=== PATIENT | male | born 1955 | race Caucasian/White ===

== ENCOUNTER 2019-11-04 08:36 | Emergency (ER) | payer OTHER ==
[2019-11-04 08:45] VITALS: BP 126/82; PULSE 73; TEMP 97.9; BMI 19.2
--- OUTSIDE RECORDS SUMMARY | 2019-11-04 08:57 | XMS ---
:1955 Author Organization [facility] Support Name Relationship Address Phone UE Unavailable Unavailable Unavailable ELMO BRIZUELA BROTHER [address] [place] [address] ELMO BRIZUELA Unavailable [address] [place] [address] Re-disclosure Warning The records that you are about to access may contain information from federally- assisted alcohol or drug abuse programs. If such information is present, then the following federally mandated warning applies: This information has been disclosed to you from records protected by federal confidentiality rules (42 CFR part 2). The federal rules prohibit you from making any further disclosure of this information unless further disclosure is expressly permitted by the written consent of the person to whom it pertains or as otherwise permitted by 42 CFR part 2. A general authorization for the release of medical or other information is NOT sufficient for this purpose. The Federal rules restrict any use of the information to criminally investigate or prosecute any alcohol or drug abuse patient.The records that you are about to access may contain highly sensitive health information, the redisclosure of which is protected by Article 27-F of the [facility] Public Health law. If you continue you may haveaccess to information: Regarding HIV / AIDS; Provided by facilities licensed or operated by the [facility] Office of Mental Health; or Provided by the [facility] Office for People With Developmental Disabilities. If such information is present, then the following [facility] mandated warning applies: This information has been disclosed to you from confidential records which are protected by state law. State law prohibits you from making any further disclosure of this information without the specific written consent of the person to whom it pertains, or as otherwise permitted by law. Any unauthorized further disclosure in violation of state law may result in a fine or fci sentence or both. A general authorization for the release of medical or other information is NOT sufficient authorization for further disclosure. Allergies and Adverse Reactions Type Description Substance Reaction Status Data Source(s ) No Known No Known Allergies No Known eCW3 ( [facility]) No Known No Known Allergies No Known eCW3 ( [facility]) No Known No Known Allergies No Known eCW3 ( [facility] Allergies [facility]erg[facility]) No Known No Known Allergies No Known eCW3 ( [facility] Allergies Allergies [facility]) No Known No Known Allergies No Known eCW3 ( [facility] Allergies [facility]ergies [facility]) No Known No Known Allergies No Known eCW3 ( [facility] Allergies Allergies [facility]) No Known No Known Allergies No Known eCW3 ( [facility] Allergies Allergies [facility]) No Known No Known Allergies No Known eCW3 ( [facility] Allergies Allergies [facility]) No Known No Known Allergies No Known eCW3 ( [facility] Allergies Allergies [facility]) No Known No Known Allergies No Known eCW3 ( [facility] Allergies Allergies [facility]) No Known No Known Allergies No known eCW3 ( [facility] Allergies allergies [facility] ([facility] [place] [facility]) Encounters Encounter Providers Location Date Indications Data Source(s ) ([place]) [facility] 11/12/2018 eCW3 ([facility] 12:00:00 AM [facility] EDT - Care) 11/12/2018 12:00:00 AM EDT Outpatient [facility] 10/12/2018 eCW3 ([facility] 12:[facility]:00 [facility] 10/12/2018 12:00:00 AM EDT Outpatient [facility] 10/02/2018 eCW3 ([facility] 12:00:00 [facility] 10/02/2018 12:00:00 AM EDT Outpatient [facility] 09/13/2018 eCW3 ([facility] 12:00:00 [facility] 09/13/2018 12:00:00 AM EDT ([place]) [facility] 08/13/2018 eCW3 ([facility] 12:00:00 AM [facility]T - Care) 08/13/2018 12:00:00 AM EDT Outpatient [facility] 07/13/2018 eCW3 ([facility] 12:00:00 [facility]) 07/13/2018 12:00:00 AM EDT Outpatient [facility] 07/03/2018 eCW3 ([facility] 12:00:00 [facility]) 07/03/2018 12:00:00 AM EDT Outpatient [facility] 07/02/2018 eCW3 ([facility] 12:00:00 [facility]) 07/02/2018 12:00:00 AM EDT (NBillable) [facility] 06/14/2018 eCW3 ([facility] 12:00:00 AM [facility]T - Care) 06/14/2018 12:00:00 AM EDT Outpatient [facility] 05/14/2018 eCW3 ([facility] 12:00:00 AM [facility]) 05/14/2018 12:00:00 AM EDT (NBillable) [facility] 04/13/2018 eCW3 ([facility] 12:00:00 AM [facility] EST - Care) 04/13/2018 12:00:00 AM EST Immunizations Vaccine Date Status Description Data Source(s) Tdap 12/06/2018 10:42:00 completed eCW3 ([facility]) New in 2011. IIV4 12/06/2018 10:42:00 completed eC W3 ([facility]) Tdap 12/06/2018 10:42:00 completed eCW3 ([facility]) New in 2011. IIV4 12/06/2018 10:42:00 completed eC W3 ([facility]) New in 2011. IIV4 11/13/2017 11:10:00 completed eC W3 ([facility]) New in 2011. IIV4 11/13/2017 11:10:00 completed eC W3 ([facility]) New in 2011. IIV4 01/16/2017 11:21:00 completed eC W3 ([facility] EST [facility]) New in 2011. IIV4 01/16/2017 11:21:00 completed eC W3 ([facility]) Medications Medication Brand Start Product Dose Route Administrative Pharmacy [facility] Indications Reaction Description Data Name Date Form Instructions Instructions Source(s) Cyanocobala UNK .0 active Cyanocoba hodge eCW3 min 1000 2020 {tabl in 1000 MCG ([facility] MCG 12:00: et} [facility] 00 [facility] EDT Care) Cyanocobala UNK 1.0 active Cyanocoba hodge eCW3 min 1000 2020 {tabl in 1000 MCG ([facility] MCG 12:00: et} [facility] 00 AM Health EDT Care) Cyanocobala UNK .0 active Cyanocoba hodge eCW3 min 1000 2020 {tabl in 1000 MCG ([facility] MCG 12:00: et} [facility] 00 AM Health EDT Care) Cyanocobala UNK .0 active Cyanocoba hodge eCW3 min 1000 2019 {tabl in 1000 MCG ([facility] MCG 12:00: et} [facility] 00 AM Health EDT Care) Cyanocobala UNK 1.0 active Cyanocoba hodge eCW3 min 1000 2020 {tabl in 1000 MCG ([facility] MCG 12:00: et} [facility] 00 AM Health EDT Care) Cyanocobala UNK .0 active Cyanocoba hodge eCW3 min 1000 2019 {tabl in 1000 MCG ([facility] MCG 12:00: et} [facility] 00 AM Health EDT Care) Famotidine Famoti .0 active Famotidi ne eCW3 40 MG Oral dine 2020 {tabl 40 MG ([facility] Tablet 40 MG 12:00: et_at [facility] 00 [facility]} Care) Famotidine Famoti .0 active Famotidi ne eCW3 40 MG Oral dine 2020 {tabl 40 MG ([facility] Tablet 40 MG 12:00: et_at [facility] 00 [facility]} Care) Famotidine Famoti .0 active Famotidi ne eCW3 40 MG Oral dine 2020 {tabl 40 MG ([facility] Tablet 40 MG 12:00: et_at [facility] 00 AM _[facility] EST [facility]} Care) Famotidine Famoti .0 active Famotidi ne eCW3 40 MG Oral dine 2020 {tabl 40 MG ([facility] Tablet 40 MG 12:00: et_at [facility] 00 AM _[facility] EST [place]} Care) Famotidine Famoti .0 active Famotidi ne eCW3 40 MG Oral dine 2020 {tabl 40 MG ([facility] Tablet 40 MG 12:00: et_at [facility] 00 AM _[facility] EST [facility]} Care) Famotidine Famoti .0 active Famotidi ne eCW3 40 MG Oral dine 2020 {tabl 40 MG ([facility] Tablet 40 MG 12:00: et_at [facility] 00 [facility] Famotidine Famoti .0 active Famotidi ne eCW3 40 MG Oral dine 2020 {tabl 40 MG ([facility] Tablet 40 MG 12:00: et_at [facility] 00 AM [facility] Care) Famotidine Famoti .0 active Famotidi ne eCW3 40 MG Oral dine 2020 {tabl 40 MG ([facility] Tablet 40 MG 12:00: et_at [facility] 00 AM [facility] Care) Famotidine Famoti .0 active Famotidi ne eCW3 20 MG Oral dine 2020 {tabl 20 MG ([facility] Tablet 20 MG 12:00: et} [facility] 00 AM [facility]) Naproxen Naprox 03/08/ active Naproxen 3 75 eCW3 375 MG Oral en 375 2020 MG ([facility] Tablet MG 12:00: [facility] 00 AM [facility]) Levothyroxi Levoth 10/11/ active Levothy roxin eCW3 ne Sodium yroxin 2016 e Sodium 25 ( [facility] 0.025 MG e 12:00: MCG [facility] Oral Tablet Sodium 00 AM Healt h Levothyroxi 25 MCG [facility] Care) ne Sodium 25 MCG Folic Acid Folic .0 active Folic Aci d 1 eCW3 1 MG Oral Acid 2016 {tabl MG ([facility] Tablet MG 12:00: et} [facility] 00 AM [facility] EDT Care) Atenolol 25 Atenol 1.0 active Atenolo l 25 eCW3 MG Oral ol 2015 {tabl MG ([facility] Tablet MG 12:00: et} [facility] 00 AM [facility] EDT Care) Amlodipine Amlodi .0 active Amlodipi ne eCW3 5 MG Oral pine 2014 {tabl Besylate 5 ([facility] Tablet Besyla 12:00: et} MG [facility] Amlodipine te 5 00 AM Health Besylate 5 MG EDT [facility]) MG levocetiriz Levoce active Levocetir izi eCW3 ine tirizi ne ([facility] dihydrochlo ne Dihydrochlor [facility] ride 5 MG Dihydr denny 5 MG Heal th Oral Tablet [facility]) Levocetiriz denny 5 ine MG Dihydrochlo ride 5 MG Metoclopram Metocl active Metoclopr ami eCW3 denny 5 MG oprami de HCl 5 MG ([facility] Oral Tablet de HCl [facility] Metoclopram 5 MG Health denny HCl 5 Care) MG pantoprazol Pantop active Pantopraz ole eCW3 e 40 MG razole Sodium 40 MG ([facility] Delayed Sodium [facility] Release 40 MG Health Oral Tablet Care) Pantoprazol e Sodium 40 MG Atenolol 25 Atenol 1.0 active Atenolol 25 eCW3 MG Oral ol 25 {tabl MG ([facility] Tablet MG et} [facility]) Folic Acid Folic 1.0 active Folic Acid 1 eCW3 1 MG Oral Acid 1 {tabl MG ([facility] Tablet MG et} [facility]) Levothyroxi Levoth active Levothyro patience eCW3 ne Sodium yroxin e Sodium 25 ( [facility] 0.025 MG e MCG [facility] Oral Tablet Sodium Health Levothyroxi 25 MCG Care) ne Sodium 25 MCG pantoprazol Pantop active Pantopraz ole eCW3 e 40 MG razole Sodium 40 MG ([facility] Delayed Sodium [facility] Release 40 MG Health Oral Tablet Care) Pantoprazol e Sodium 40 MG Folic Acid Folic 1.0 active Folic Acid 1 eCW3 1 MG Oral Acid 1 {tabl MG ([facility] Tablet MG et} [facility]) Amlodipine Amlodi 1.0 active Amlodipine eCW3 5 MG Oral pine {tabl Besylate 5 (Hu dson Tablet Besyla et} MG [facility] Amlodipine te 5 Health Besylate 5 MG Care) MG Folic Acid Folic 1.0 active Folic Acid 1 eCW3 1 MG Oral Acid 1 {tabl MG ([facility] Tablet MG et} [facility]) Loratadine Clarit 1.0 suspend Claritin 10 eCW3 10 MG Oral in 10 {tabl ed mg ([facility] Tablet mg et} [facility] [Claritin] Health Claritin 10 Care) mg Metoclopram Metocl active Metoclopr ami eCW3 denny 5 MG oprami de HCl 5 MG ([facility] Oral Tablet de HCl [facility] Metoclopram 5 MG Health denny HCl 5 Care) MG Meclizine Mecliz 1.0 suspend Meclizine eCW3 Hydrochlori ine {tabl ed HCl 25 MG ([facility] de 25 MG HCl 25 et_as [facility] Oral Tablet MG _need Health Meclizine ed} Care) HCl 25 MG Amlodipine Amlodi 1.0 active Amlodipine eCW3 5 MG Oral pine {tabl Besylate 5 (Hu dson Tablet Besyla et} MG [facility] Amlodipine te 5 Health Besylate 5 MG Care) MG Levothyroxi Levoth active Levothyro patience eCW3 ne Sodium yroxin e Sodium 25 ( [facility] 0.025 MG e MCG [facility] Oral Tablet Sodium Health Levothyroxi 25 MCG Care) ne Sodium 25 MCG Claritin 10 Clarit 1.0 suspend Claritin 10 eCW3 mg in 10 {tabl ed mg ([facility] mg et} [facility]) Meclizine Mecliz 1.0 suspend Meclizine eCW3 Hydrochlori ine {tabl ed HCl 25 MG ([facility] de 25 MG HCl 25 et_as [facility] Oral Tablet MG _need Health Meclizine ed} Care) HCl 25 MG Vitamin B Cyanoc 1.0 active Cyanocobala m eCW3 12 1 MG/ML obalam {ml} in 1000 ([facility] son Injectable in MCG/ML [facility] Solution 1000 Health Cyanocobala MCG/ML Care) min 1000 MCG/ML Loratadine Clarit 1.0 suspend Claritin 10 eCW3 10 MG Oral in 10 {tabl ed mg ([facility] Tablet mg et} [facility] [Claritin] Health Claritin 10 Care) mg Atenolol 25 Atenol 1.0 active Atenolol 25 eCW3 MG Oral ol 25 {tabl MG ([facility] Tablet MG et} [facility]) levocetiriz Levoce active Levocetir izi eCW3 ine tirizi ne ([facility] dihydrochlo ne Dihydrochlor [facility] ride 5 MG Dihydr denny 5 MG Heal th Oral Tablet [facility]) Levocetiriz denny 5 ine MG Dihydrochlo ride 5 MG pantoprazol Pantop active Pantopraz ole eCW3 e 40 MG razole Sodium 40 MG ([facility] Delayed Sodium [facility] Release 40 MG Health Oral Tablet Care) Pantoprazol e Sodium 40 MG Atenolol 25 Atenol 1.0 active Atenolol 25 eCW3 MG Oral ol 25 {tabl MG ([facility] Tablet MG et} [facility]) Vitamin B Cyanoc 1.0 active Cyanocobala m eCW3 12 1 MG/ML obalam {ml} in 1000 ([facility] son Injectable in MCG/ML [facility] Solution 1000 Health Cyanocobala MCG/ML Care) min 1000 MCG/ML Vitamin B Cyanoc 1.0 active Cyanocobala m eCW3 12 1 MG/ML obalam {ml} in 1000 ([facility] son Injectable in MCG/ML [facility] Solution 1000 Health Cyanocobala MCG/ML Care) min 1000 MCG/ML Vitamin B Cyanoc 1.0 active Cyanocobala m eCW3 12 1 MG/ML obalam {ml} in 1000 ([facility] son Injectable in MCG/ML [facility] Solution 1000 Health Cyanocobala MCG/ML Care) min 1000 MCG/ML Amlodipine Amlodi 1.0 active Amlodipine eCW3 5 MG Oral pine {tabl Besylate 5 (Hu dson Tablet Besyla et} MG [facility] Amlodipine te 5 Health Besylate 5 MG Care) MG Atenolol 25 Atenol 1.0 active Atenolol 25 eCW3 MG Oral ol 25 {tabl MG ([facility] Tablet MG et} [facility]) Metoclopram Metocl active Metoclopr ami eCW3 denny 5 MG oprami de HCl 5 MG ([facility] Oral Tablet de HCl [facility] Metoclopram 5 MG Health denny HCl 5 Care) MG levocetiriz Levoce active Levocetir izi eCW3 ine tirizi ne ([facility] dihydrochlo ne Dihydrochlor [facility] ride 5 MG Dihydr denny 5 MG Heal th Oral Tablet [facility]) Levocetiriz denny 5 ine MG Dihydrochlo ride 5 MG Loratadine Clarit 1.0 suspend Claritin 10 eCW3 10 MG Oral in 10 {tabl ed mg ([facility] Tablet mg et} [facility] [Claritin] Health Claritin 10 Care) mg Amlodipine Amlodi 1.0 active Amlodipine eCW3 5 MG Oral pine {tabl Besylate 5 (Hu dson Tablet Besyla et} MG [facility] Amlodipine te 5 Health Besylate 5 MG Care) MG Vitamin B Cyanoc 1.0 active Cyanocobala m eCW3 12 1 MG/ML obalam {ml} in 1000 ([facility] son Injectable in MCG/ML [facility] Solution 1000 Health Cyanocobala MCG/ML Care) min 1000 MCG/ML Atenolol 25 Atenol 1.0 active Atenolol 25 eCW3 MG Oral ol 25 {tabl MG ([facility] Tablet MG et} [facility]) levocetiriz Levoce active Levocetir izi eCW3 ine tirizi ne ([facility] dihydrochlo ne Dihydrochlor [facility] ride 5 MG Dihydr denny 5 MG Heal th Oral Tablet [facility]) Levocetiriz denny 5 ine MG Dihydrochlo ride 5 MG Metoclopram Metocl active Metoclopr ami eCW3 denny 5 MG oprami de HCl 5 MG ([facility] Oral Tablet de HCl [facility] Metoclopram 5 MG Health denny HCl 5 Care) MG Meclizine Mecliz 1.0 suspend Meclizine eCW3 Hydrochlori ine {tabl ed HCl 25 MG ([facility] de 25 MG HCl 25 et_as [facility] Oral Tablet MG _need Health Meclizine ed} Care) HCl 25 MG Levothyroxi Levoth active Levothyro patience eCW3 ne Sodium yroxin e Sodium 25 ( [facility] 0.025 MG e MCG [facility] Oral Tablet Sodium Health Levothyroxi 25 MCG Care) ne Sodium 25 MCG Amlodipine Amlodi 1.0 active Amlodipine eCW3 5 MG Oral pine {tabl Besylate 5 (Hu dson Tablet Besyla et} MG [facility] Amlodipine te 5 Health Besylate 5 MG Care) MG Metoclopram Metocl active Metoclopr ami eCW3 denny 5 MG oprami de HCl 5 MG ([facility] Oral Tablet de HCl [facility] Metoclopram 5 MG Health denny HCl 5 Care) MG pantoprazol Pantop active Pantopraz ole eCW3 e 40 MG razole Sodium 40 MG ([facility] Delayed Sodium [facility] Release 40 MG Health Oral Tablet Care) Pantoprazol e Sodium 40 MG Folic Acid Folic 1.0 active Folic Acid 1 eCW3 1 MG Oral Acid 1 {tabl MG ([facility] Tablet MG et} [facility]) Amlodipine Amlodi 1.0 active Amlodipine eCW3 5 MG Oral pine {tabl Besylate 5 (Hu dson Tablet Besyla et} MG [facility] Amlodipine te 5 Health Besylate 5 MG Care) MG levocetiriz Levoce active Levocetir izi eCW3 ine tirizi ne ([facility] dihydrochlo ne Dihydrochlor [facility] ride 5 MG Dihydr denny 5 [facility] Levocetiriz denny 5 ine MG Dihydrochlo ride 5 MG Folic Acid Folic 1.0 active Folic Acid 1 eCW3 1 MG Oral Acid 1 {tabl MG ([facility] Tablet MG et} [facility] Care) Meclizine Mecliz 1.0 suspend Meclizine eCW3 Hydrochlori ine {tabl ed HCl 25 MG (H udson de 25 MG HCl 25 et_as [facility] Oral Tablet MG _need Health Meclizine ed} Care) HCl 25 MG Levothyroxi Levoth active Levothyro patience eCW3 ne Sodium yroxin e Sodium 25 ( [facility] 0.025 MG e MCG [facility] Oral Tablet Sodium Health Levothyroxi 25 MCG Care) ne Sodium 25 MCG Meclizine Mecliz 1.0 suspend Meclizine eCW3 Hydrochlori ine {tabl ed HCl 25 MG (H udson de 25 MG HCl 25 et_as [facility] Oral Tablet MG _need Health Meclizine ed} Care) HCl 25 MG Meclizine Mecliz 1.0 suspend Meclizine eCW3 Hydrochlori ine {tabl ed HCl 25 MG (H udson de 25 MG HCl 25 et_as [facility] Oral Tablet MG _need Health Meclizine ed} Care) HCl 25 MG levocetiriz Levoce active Levocetir izi eCW3 ine tirizi ne ([facility] dihydrochlo ne Dihydrochlor [facility] ride 5 MG Dihydr denny 5 MG [facility] Levocetiriz denny 5 ine MG Dihydrochlo ride 5 MG pantoprazol Pantop active Pantopraz ole eCW3 e 40 MG razole Sodium 40 MG (H udson Delayed Sodium [facility] Release 40 MG Health Oral Tablet Care) Pantoprazol e Sodium 40 MG pantoprazol Pantop active Pantopraz ole eCW3 e 40 MG razole Sodium 40 MG (H udson Delayed Sodium [facility] Release 40 MG Health Oral Tablet Care) Pantoprazol e Sodium 40 MG Atenolol 25 Atenol 1.0 active Atenolol 25 eCW3 MG Oral ol 25 {tabl MG ([facility] Tablet MG et} [facility]) Vitamin B Cyanoc 1.0 active Cyanocobala m eCW3 12 1 MG/ML obalam {ml} in 1000 ([facility] son Injectable in MCG/ML [facility] Solution 1000 Health Cyanocobala MCG/ML Care) min 1000 MCG/ML Folic Acid Folic 1.0 active Folic Acid 1 eCW3 1 MG Oral Acid 1 {tabl MG ([facility] Tablet MG et} [facility]) Folic Acid Folic 1.0 active Folic Acid 1 eCW3 1 MG Oral Acid 1 {tabl MG ([facility] Tablet MG et} [facility] Care) Meclizine Mecliz 1.0 suspend Meclizine eCW3 Hydrochlori ine {tabl ed HCl 25 MG (H udson de 25 MG HCl 25 et_as [facility] Oral Tablet MG _need Health Meclizine ed} Care) HCl 25 MG Levothyroxi Levoth active Levothyro patience eCW3 ne Sodium yroxin e Sodium 25 ( [facility] 0.025 MG e MCG [facility] Oral Tablet Sodium Health Levothyroxi 25 MCG Care) ne Sodium 25 MCG Atenolol 25 Atenol 1.0 active Atenolol 25 eCW3 MG Oral ol 25 {tabl MG ([facility] Tablet MG et} [facility] Care) Vitamin B Cyanoc 1.0 active Cyanocobala m eCW3 12 1 MG/ML obalam {ml} in 1000 ([facility] son Injectable in MCG/ML [facility] Solution 1000 Health Cyanocobala MCG/ML Care) min 1000 MCG/ML Vitamin B Cyanoc 1.0 active Cyanocobala m eCW3 12 1 MG/ML obalam {ml} in 1000 ([facility] son Injectable in MCG/ML [facility] Solution 1000 Health Cyanocobala MCG/ML Care) min 1000 MCG/ML levocetiriz Levoce active Levocetir izi eCW3 ine tirizi ne ([facility] dihydrochlo ne Dihydrochlor [facility] ride 5 MG Dihydr denny 5 MG [facility] Levocetiriz denny 5 ine MG Dihydrochlo ride 5 MG Amlodipine Amlodi 1.0 active Amlodipine eCW3 5 MG Oral pine {tabl Besylate 5 (Hu dson Tablet Besyla et} MG [facility] Amlodipine te 5 Health Besylate 5 MG Care) MG Atenolol 25 Atenol 1.0 active Atenolol 25 eCW3 MG Oral ol 25 {tabl MG ([facility] Tablet MG et} [facility]) Loratadine Clarit 1.0 suspend Claritin 10 eCW3 10 MG Oral in 10 {tabl ed mg ([facility] Tablet mg et} [facility] [[facility]] [facility] [place] [facility]) mg Amlodipine Amlodi 1.0 active Amlodipine eCW3 5 MG Oral pine {tabl Besylate 5 (Hu dson Tablet Besyla et} MG [facility] Amlodipine te 5 Health Besylate 5 MG Care) MG Folic Acid Folic 1.0 active Folic Acid 1 eCW3 1 MG Oral Acid 1 {tabl MG ([facility] Tablet MG et} [facility]) Folic Acid Folic 1.0 active Folic Acid 1 eCW3 1 MG Oral Acid 1 {tabl MG ([facility] Tablet MG et} [facility] Care) Metoclopram Metocl active Metoclopr ami eCW3 denny 5 MG oprami de HCl 5 MG (H udson Oral Tablet de HCl [facility] Metoclopram 5 MG Health denny HCl 5 Care) MG Loratadine Clarit 1.0 suspend Claritin 10 eCW3 10 MG Oral in 10 {tabl ed mg ([facility] Tablet mg et} [facility] [[facility]] [facility] 10 [place] [facility]) mg Vitamin B Cyanoc 1.0 active Cyanocobala m eCW3 12 1 MG/ML obalam {ml} in 1000 ([facility] son Injectable in MCG/ML [facility] Solution 1000 Health Cyanocobala MCG/ML Care) min 1000 MCG/ML Loratadine Clarit 1.0 suspend Claritin 10 eCW3 10 MG Oral in 10 {tabl ed mg ([facility] Tablet mg et} [facility] [[facility]] [facility] 10 [place] [facility]) mg Loratadine Clarit 1.0 suspend Claritin 10 eCW3 10 MG Oral in 10 {tabl ed mg ([facility] Tablet mg et} [facility] [[facility]] [address]) mg Levothyroxi Levoth active Levothyro patience eCW3 ne Sodium yroxin e Sodium 25 ( [facility] 0.025 MG e MCG [facility] Oral Tablet Sodium Health Levothyroxi 25 MCG Care) ne Sodium 25 MCG pantoprazol Pantop active Pantopraz ole eCW3 e 40 MG razole Sodium 40 MG (H udson Delayed Sodium [facility] Release 40 MG Health Oral Tablet Care) Pantoprazol e Sodium 40 MG Amlodipine Amlodi 1.0 active Amlodipine eCW3 5 MG Oral pine {tabl Besylate 5 (Hu dson Tablet Besyla et} MG [facility] Amlodipine te 5 Health Besylate 5 MG Care) MG Levothyroxi Levoth active Levothyro patience eCW3 ne Sodium yroxin e Sodium 25 ( [facility] 0.025 MG e MCG [facility] Oral Tablet Sodium Health Levothyroxi 25 MCG Care) ne Sodium 25 MCG Loratadine Clarit 1.0 suspend Claritin 10 eCW3 10 MG Oral in 10 {tabl ed mg ([facility] Tablet mg et} [facility] [[facility]] [address]) mg levocetiriz Levoce active Levocetir izi eCW3 ine tirizi ne (N[facility]ols dihydrochlo ne Dihydrochlor [facility] ride 5 MG Dihydr denny 5 MG Heal th Oral Tablet [facility]) Levocetiriz denny 5 ine MG Dihydrochlo ride 5 MG Loratadine Clarit 1.0 suspend Claritin 10 eCW3 10 MG Oral in 10 {tabl ed mg ([facility] Tablet mg et} [facility] [[facility]] [address]) mg Meclizine Mecliz 1.0 suspend Meclizine eCW3 Hydrochlori ine {tabl ed HCl 25 MG (H udson de 25 MG HCl 25 et_as [facility] Oral Tablet MG _need Health Meclizine ed} Care) HCl 25 MG Meclizine Mecliz 1.0 suspend Meclizine eCW3 Hydrochlori ine {tabl ed HCl 25 MG (H udson de 25 MG HCl 25 et_as [facility] Oral Tablet MG _need Health Meclizine ed} Care) HCl 25 MG Levothyroxi Levoth active Levothyro patience eCW3 ne Sodium yroxin e Sodium 25 ( [facility] 0.025 MG e MCG [facility] Oral Tablet Sodium Health Levothyroxi 25 MCG Care) ne Sodium 25 MCG levocetiriz Levoce active Levocetir izi eCW3 ine tirizi ne (N[facility]ols dihydrochlo ne Dihydrochlor [facility] ride 5 MG Dihydr denny 5 MG Heal th Oral Tablet [facility]) Levocetiriz denny 5 ine MG Dihydrochlo ride 5 MG Meclizine Mecliz 1.0 suspend Meclizine eCW3 Hydrochlori ine {tabl ed HCl 25 MG (H udson de 25 MG HCl 25 et_as [facility] Oral Tablet MG _need Health Meclizine ed} Care) HCl 25 MG Metoclopram Metocl active Metoclopr ami eCW3 denny 5 MG oprami de HCl 5 MG (H udson Oral Tablet de HCl [facility] Metoclopram 5 MG Health denny HCl 5 Care) MG Atenolol 25 Atenol 1.0 active Atenolol 25 eCW3 MG Oral ol 25 {tabl MG ([facility] Tablet MG et} [facility]) Levothyroxi Levoth active Levothyro patience eCW3 ne Sodium yroxin e Sodium 25 ( [facility] 0.025 MG e MCG [facility] Oral Tablet Sodium Health Levothyroxi 25 MCG Care) ne Sodium 25 MCG Metoclopram Metocl active Metoclopr ami eCW3 denny 5 MG oprami de HCl 5 MG (H udson Oral Tablet de HCl [facility] Metoclopram 5 MG Health denny HCl 5 Care) MG Metoclopram Metocl active Metoclopr ami eCW3 denny 5 MG oprami de HCl 5 MG ([facility] ud[facility] Oral Tablet de HCl [facility] Metoclopram 5 MG Health denny HCl 5 Care) MG pantoprazol Pantop active Pantopraz ole eCW3 e 40 MG razole Sodium 40 MG ([facility] udson Delayed Sodium [facility] Release 40 MG Health Oral Tablet Care) Pantoprazol e Sodium 40 MG Loratadine Clarit 1.0 suspend Claritin 10 eCW3 10 MG Oral in 10 {tabl ed mg (Nichols Tablet mg et} [facility] [Claritin] Health Claritin 10 Care) mg Amlodipine Amlodi 1.0 active Amlodipine eCW3 5 MG Oral pine {tabl Besylate 5 (Hu dson Tablet Besyla et} MG [facility] Amlodipine te 5 Health Besylate 5 MG Care) MG Folic Acid Folic 1.0 active Folic Acid 1 eCW3 1 MG Oral Acid 1 {tabl MG (Nichols Tablet MG et} [facility]) Meclizine Mecliz 1.0 suspend Meclizine eCW3 Hydrochlori ine {tabl ed HCl 25 MG (H udson de 25 MG HCl 25 et_as [facility] Oral Tablet MG _need Health Meclizine ed} Care) HCl 25 MG pantoprazol Pantop active Pantopraz ole eCW3 e 40 MG razole Sodium 40 MG (H udson Delayed Sodium [facility] Release 40 MG Health Oral Tablet Care) Pantoprazol e Sodium 40 MG Vitamin B Cyanoc 1.0 active Cyanocobala m eCW3 12 1 MG/ML obalam {ml} in 1000 (Hud son Injectable in MCG/ML [facility] Solution 1000 [facility] Cyanocobala MCG/ML Care) min 1000 MCG/ML Levothyroxi Levoth active Levothyro patience eCW3 ne Sodium yroxin e Sodium 25 ( Nichols 0.025 MG e MCG [facility] Oral Tablet Sodium [facility] Levothyroxi 25 MCG Care) ne Sodium 25 MCG Atenolol 25 Atenol 1.0 active Atenolol 25 eCW3 MG Oral ol 25 {tabl MG (Nichols Tablet MG et} [facility]) Insurance Providers Payer name Policy type Policy ID Covered Covered libertarian's Policy P patricia / Coverage libertarian ID relationship to Junior Inf ormation type junior [facility] MEDICAID [id number] [facility] Medicaid [id number] S [id number] Regular Clinic Visit Medicaid [id number] Regular Clinic Visit Problems, Conditions, and Diagnoses Code Display Name Description Problem Type Effective Data Sour ce(s) Dates R13.10 Dysphagia Dysphagia, Problem 07/03/2018 eCW3 ([facility]ols unspecified 12:00:00 AM [facility] EDT Care) I10 Hypertension HTN Problem 07/02/2018 eCW3 ([facility] (hypertension) 12:00:00 AM [facility] EDT Care) I10 Essential Essential Problem 04/18/2017 eCW3 ([facility] hypertension (primary) 12:00:00 AM [facility] hypertension EST Care) E89.0 Postoperative Hypothyroidism, Problem 12/13/2016 eCW3 ( [facility] Hypothyroidism postsurgical 12:00:00 AM [facility] EDT Care) E89.0 Postoperative Hypothyroidism, Problem 12/13/2016 eCW3 ( [facility] Hypothyroidism postsurgical 12:00:00 AM [facility] EDT Care) R22.1 Neck mass Neck mass Problem 07/08/2015 eCW3 ([facility]ols 12:00:00 AM [facility] EDT Care) E46 Malnutrition Malnutrition Problem 04/17/2015 eCW3 ([facility] 12:00:00 AM [facility] Care) R42 Vertigo Vertigo Problem 04/17/2015 eCW3 ([facility]ols 12:00:00 AM [facility]) E53.8 Vitamin B12 Vitamin B12 Problem 12/15/2014 eCW3 ([facility] deficiency deficiency 12:00:00 AM [facility] EDT Care) E53.8 Vitamin B12 Vitamin B12 Problem 12/15/2014 eCW3 ([facility] deficiency deficiency 12:00:00 AM [facility] EDT Care) V70.0 ROUTINE GENERAL WELL PATIENT Diagnosis 04/20/2018 ELAINA Carlson ([facility] MEDICAL EXAMINATION VISIT 04:08:49 PM José on AT [facility] CARE [facility]) I10 Essential (primary) Essential Diagnosis 04/20/2018 SIM DE LEON ([facility] hypertension (primary) 03:53:57 PM [facility]) Surgeries/Procedures Procedure Description Date Indications Data Source(s) Injection, vitamin 11/12/2018 eCW3 ([facility] b-12 cyanocobalamin, 12:00:00 AM EDT [facility]) up to 1000 mcg Injection, vitamin 08/13/2018 eCW3 ([facility] b-12 cyanocobalamin, 12:00:00 AM EDT [facility]) up to 1000 mcg Injection, vitamin 06/14/2018 eCW3 ([facility] b-12 cyanocobalamin, 12:00:00 AM EDT [facility]) up to 1000 mcg Injection, vitamin 05/14/2018 eCW3 ([facility] b-12 cyanocobalamin, 12:00:00 AM EDT [facility]) up to 1000 mcg Injection, vitamin 04/13/2018 eCW3 ([facility] b-12 cyanocobalamin, 12:00:00 AM EST [facility]) up to 1000 mcg Social History Code Duration Value Status Description Data Source(s ) Smoking 07/06/2019 Never Smoker completed Never Smoker eCW3 ([facility] 12:00:00 AM [facility]) Smoking 07/06/2019 Never Smoker completed Never Smoker eCW3 ([facility] 12:00:00 AM [facility]) Smoking 07/06/2019 Never Smoker completed Never Smoker eCW3 ([facility] 12:00:00 AM [facility]) Smoking 07/06/2019 Never Smoker completed Never Smoker eCW3 ([facility] 12:00:00 AM [facility]) Smoking 07/06/2019 Never Smoker completed Never Smoker eCW3 ([facility] 12:00:00 AM [facility]) Smoking 07/06/2019 Never Smoker completed Never Smoker eCW3 ([facility] 12:00:00 AM [facility]) Smoking 04/08/2019 Never Smoker completed Never Smoker eCW3 ([facility] 12:00:[address] [facility]) Smoking 04/08/2019 Never Smoker completed Never Smoker eCW3 ([facility] 12:00:[address] [facility]) Smoking 03/09/2019 Never Smoker completed Never Smoker eCW3 ([facility] 12:00:00 AM EST [facility]) Never Smoker completed Never Smoker eCW3 ([facility] Care) Never Smoker completed Never Smoker eCW3 ([facility]) Never Smoker completed Never Smoker eCW3 ([facility] Never Smoker completed Never Smoker eCW3 ([facility]) Never Smoker completed Never Smoker eCW3 ([facility]) Never Smoker completed Never Smoker eCW3 ([facility]) Never Smoker completed Never Smoker eCW3 ([facility]) Never Smoker completed Never Smoker eCW3 ([facility]) Never Smoker completed Never Smoker eCW3 ([facility]) Smoking Unknown if ever completed Unknown if ever eCW3 ([facility] smoked smoked [facility]) Smoking Unknown if ever completed Unknown if ever eCW3 ([facility] smoked smoked [facility]) Vital Signs ID Date Data Source UNK Name Value Range Interpretation Code Description Data Source(s) Diastolic blood 62 mm[Hg] 62 mm[Hg] eCW3 ([facility]) Systolic blood 99 mm[Hg] 99 mm[Hg] eCW3 ([facility]) Body temperature 97.7 [degF] 97.7 [degF] eCW3 ( [facility]) Heart rate 20 /min 20 /min eCW3 ([facility]) Body mass index 19.72 kg/m2 19.72 kg/m2 eCW3 ([facility] (BMI) [Ratio] [facility]) Body weight 141.4 141.4 [lb_av] eCW3 ([facility] on [lb_av] [facility]) Body height 71 [in_i] 71 [in_i] eCW3 ([facility]) Diastolic blood 65 mm[Hg] 65 mm[Hg] eCW3 ([facility]) Systolic blood 102 mm[Hg] 102 mm[Hg] eCW3 ([facility] on [facility]) Body temperature 97.6 [degF] 97.6 [degF] eCW3 ( [facility]) Heart rate 20 /min 20 /min eCW3 ([facility]) Body mass index 20.92 kg/m2 20.92 kg/m2 eCW3 ([facility] (BMI) [Ratio] [facility]) Body weight 150 [lb_av] 150 [lb_av] eCW3 ([facility]) Body height 71 [in_i] 71 [in_i] eCW3 ([facility]) Diastolic blood 63 mm[Hg] 63 mm[Hg] eCW3 ([facility]) Systolic blood 102 mm[Hg] 102 mm[Hg] eCW3 ([facility] on [facility] Care) Body temperature 98.1 [degF] 98.1 [degF] eCW3 ( [facility]) Heart rate 20 /min 20 /min eCW3 ([facility]) Body mass index 20.78 kg/m2 20.78 kg/m2 eCW3 ([facility] (BMI) [Ratio] [facility]) Body weight 149 [lb_av] 149 [lb_av] eCW3 ([facility]) Body height 71 [in_i] 71 [in_i] eCW3 ([facility]) Diastolic blood 61 mm[Hg] 61 mm[Hg] eCW3 ([facility]) Systolic blood 94 mm[Hg] 94 mm[Hg] eCW3 ([facility]) Body temperature 98.0 [degF] 98.0 [degF] eCW3 ( [facility]) Heart rate 20 /min 20 /min eCW3 ([facility]) Body mass index 20.78 kg/m2 20.78 kg/m2 eCW3 ([facility] (BMI) [Ratio] [facility]) Body weight 149 [lb_av] 149 [lb_av] eCW3 ([facility]) Body height 71 [in_i] 71 [in_i] eCW3 ([facility]) Patient Treatment Plan of Care Planned Activity Planned Date Details Description Data Source (s) Cyanocobalamin 1000 MCG 07/08/2019 12:00:00 eCW3 ([facility]) Cyanocobalamin 1000 MCG 07/08/2019 12:00:00 eCW3 ([facility]) Cyanocobalamin 1000 MCG 07/08/2019 12:00:00 eCW3 ([facility]) Cyanocobalamin 1000 MCG 07/08/2019 12:00:00 eCW3 ([facility]) Cyanocobalamin 1000 MCG 07/08/2019 12:00:00 eCW3 ([facility]) Cyanocobalamin 1000 MCG 07/08/2019 12:00:00 eCW3 ([facility]) Naproxen 375 MG Oral 03/08/2019 12:00:00 eCW3 ([facility] Tablet [facility]) Famotidine 20 MG Oral 03/08/2019 12:00:00 eCW3 ([facility]) Levothyroxine Sodium 0.025 e CW3 ([facility] Oral Tablet [facility]) Atenolol 25 MG Oral Tablet e CW3 ([facility]) Folic Acid 1 MG Oral eCW3 ([facility]) Amlodipine 5 MG Oral eCW3 ([facility]) Levothyroxine Sodium 0.025 e CW3 ([facility] Oral [facility]) Atenolol 25 MG Oral Tablet e CW3 ([facility]) Folic Acid 1 MG Oral eCW3 ([facility] Tablet [facility]) Amlodipine 5 MG Oral eCW3 ([facility]t [facility]) Levothyroxine Sodium 0.025 e CW3 ([facility] Oral Tablet [facility]) Atenolol 25 MG Oral Tablet e CW3 ([facility]) Folic Acid 1 MG Oral eCW3 ([facility] Tablet [facility]) Amlodipine 5 MG Oral eCW3 ([facility] Tablet [facility]) Levothyroxine Sodium 0.025 e CW3 ([facility] Oral Tablet [facility]) Atenolol 25 MG Oral Tablet e CW3 ([facility]) Folic Acid 1 MG Oral eCW3 ([facility]) Amlodipine 5 MG Oral eCW3 ([facility]) Levothyroxine Sodium 0.025 e CW3 ([facility] Oral [facility]t [facility]) Atenolol 25 MG Oral Tablet e CW3 ([facility]) Folic Acid 1 MG Oral eCW3 ([facility]) Amlodipine 5 MG Oral eCW3 ([facility]) Levothyroxine Sodium 0.025 e CW3 ([facility] Oral Tablet [facility]) Atenolol 25 MG Oral Tablet e CW3 ([facility]) Folic Acid 1 MG Oral eCW3 ([facility]) Amlodipine 5 MG Oral eCW3 ([facility] Tablet [facility]) Atenolol 25 MG Oral Tablet e CW3 ([facility]) Amlodipine 5 MG Oral eCW3 ([facility])
[2019-11-04] MEDS ORDERED: SODIUM CHLORIDE 1,000 ML IV STA (09:19)
[2019-11-04 09:48] LABS: BASO % 0.6 % (0-2.0); EOS % 0.9 % (0-4.5); HEMATOCRIT 40.2 % (35.4-49); HEMOGLOBIN 13.2 GM/dL (11.7-16.9); LYMPH % 27.1 % (8-40); MCH 29.5 pg (25.7-33.7); MCHC 32.9 g/dl (32.0-35.9); MEAN CELL VOLUME 89.7 fl (80-96); MEAN PLT VOLUME 7.7 fl (7.5-11.1); MONO % 6.5 % (3.8-10.2); NEUT % 64.9 % (42.8-82.8); PLATELET COUNT 353 K/MM3 (134-434); RBC 4.47 M/mm3 (4.00-5.60); RDW 13.4 % (11.9-15.9)
--- NOTE | 2019-11-04 09:56 | PDOC ---
History of Present Illness - General Chief Complaint: Pain Stated Complaint: LEG PAIN Time Seen by Provider: 11/04/19 09:00 History Source: Patient Exam Limitations: No Limitations Past History - Travel History Traveled outside of the country in the last 30 days: No Close contact w/someone who was outside of country & ill: No - Medical History Allergies/Adverse Reactions: Allergies Allergy/AdvReac Type Severity Reaction Status Date / Time No Known Allergies Allergy Verified 11/04/19 08:39 Home Medications: Ambulatory Orders Ibuprofen 600 mg PO Q6H #30 tablet 11/04/19 COPD: No HTN: Yes Thyroid Disease: Yes (hypo) - Psycho-Social/Smoking History Smoking History: Never smoked Have you smoked in the past 12 months: No - Substance Abuse Hx (Audit-C & DAST Scrn) How often the patient has a drink containing alcohol: Monthly or less Number of drinks the patient has on a typical day: 1 or 2 How often the patient has six or more drinks on one occasion: Never Score: In Men: 4 or > Positive; In Women: 3 or > Positive: 1 Screen Result (Pos requires Nsg. Audit-10AR): Negative In the last yr the pt used illegal drug/Rx for NonMed reason: No Score: Yes response is considered Positive: 0 Screen Result (Positive result requires Nsg. DAST-10): Negative Review of Systems - Review of Systems Able to Perform ROS?: Yes Comments:: 11/04/19 09:29 CONSTITUTIONAL: Absent: fever, chills, diaphoresis, generalized weakness, malaise, loss of appetite HEENT: Absent: rhinorrhea, nasal congestion, throat pain, throat swelling, difficulty swallowing, mouth swelling, ear pain, eye pain, visual Changes CARDIOVASCULAR: Absent: chest pain, loss of consciousness, palpitations, irregular heart rate, peripheral edema RESPIRATORY: Absent: cough, shortness of breath, dyspnea with exertion, orthopnea, wheezing, stridor, hemoptysis GASTROINTESTINAL: Absent: abdominal pain, abdominal distension, nausea, vomiting, diarrhea, constipation, melena, hematochezia GENITOURINARY: Absent: dysuria, frequency, urgency, hesitancy, hematuria, flank pain, genital pain MUSCULOSKELETAL: Present: leg pain, muscle cramping Absent: arthralgia, joint swelling SKIN: Absent: rash, itching, pallor HEMATOLOGIC/IMMUNOLOGIC: Absent: easy bleeding, easy bruising, lymphadenopathy, frequent infections ENDOCRINE: Absent: unexplained weight gain, unexplained weight loss, heat intolerance, cold intolerance NEUROLOGIC: Absent: headache, focal weakness or paresthesias, dizziness, unsteady gait, seizure, mental status changes, bladder or bowel incontinence PSYCHIATRIC: Absent: anxiety, depression, suicidal or homicidal ideation, hallucinations. Is the patient limited Czech proficient: No *Physical Exam - Vital Signs Last Vital Signs Temp Pulse Resp BP Pulse Ox 97.9 F 73 18 126/82 100 11/04/19 08:39 11/04/19 08:39 11/04/19 08:39 11/04/19 08:39 11/04/19 08:39 - Physical Exam 11/04/19 09:30 GENERAL: Well developed, well nourished. Awake and alert. No acute distress. HEENT: Normocephalic, atraumatic. PERRLA, EOMI. No conjunctival pallor. Sclera are non- icteric. Moist mucous membranes. NECK: Supple. Full ROM. No lymphadenopathy. CARDIOVASCULAR: Regular rate and rhythm. No murmurs, rubs, or gallops. Distal pulses are 2+ and symmetric. PULMONARY: No evidence of respiratory distress. Lungs clear to auscultation bilaterally. No wheezing, rales or rhonchi. ABDOMINAL: Soft. Non-tender. Non-distended. No rebound or guarding. MUSCULOSKELETAL TTP of the lateral aspect of the L upper leg along the IT band. Normal range of motion at all joints. No bony deformities or tenderness. No CVA tenderness. EXTREMITIES: No cyanosis. No clubbing. No edema. No calf tenderness. SKIN: Warm and dry. Normal capillary refill. No rashes. No jaundice. NEUROLOGICAL: Alert, awake, appropriate. Cranial nerves 2-12 intact. No deficits to light touch and temperature in face, upper extremities and lower extremities. No motor deficits in the in face, upper extremities and lower extremities. Normoreflexic in the upper and lower extremities. Normal speech. Toes are down-going bilaterally. Gait is normal without ataxia. PSYCHIATRIC: Cooperative. Good eye contact. Appropriate mood and affect. ED Treatment Course - LABORATORY CBC & Chemistry Diagram: 11/04/19 09:35 11/04/19 09:35 - RADIOLOGY Radiology Studies Ordered: Category Date Time Status DUPLEX VASCUL US-2LEGS [US] Stat Ultrasound 11/04/19 09:18 Ordered Medical Decision Making - Medical Decision Making 11/04/19 12:11 The patient is a 64 y/o M with past medical history of hypertension, hypothyroidism, presenting to the ER today with bilateral leg cramping. He states that this is been going on for approcimately one week; however, he states it was worse last night prompting his visit to the ER this morning. He states he is eating and drinking as normal. He saw his PCP for this issue 5 days ago and was prescribed naproxen for which he states hasn't helped his symptoms. States his cramping is worse in the middle of the night. Denies worsening muscle fatigue with walking. Denies numbness, weakness to the affected extremities. A/P: Muscle Cramping On exam, pt has TTP of the L lateral leg along the IT band. States he also has mild calf pain when squeezing. (-) Mir test. Possible metabolic disturbance vs blood clot Labs, dupex US b/l legs obtained 1L fluids also given Labs show mildly elevated BUN, trace Ketones in the urine US with no evidence of blood clots b/l. Probable dehydration; pt feels better after a liter of fluids DC home with PCP follow up and instructions to hydrate I discussed the physical exam findings, ancillary test results and final diagnoses with the patient. I answered all of the patient's questions. The patient was satisfied with the care received and felt comfortable with the discharge plan and treatment plan. The Patient agrees to follow up with the primary care physician/specialist within 24-72 hours. Return precautions were given. Discharge - Discharge Information Problems reviewed: Yes Clinical Impression/Diagnosis: Dehydration Leg pain Qualifiers: Laterality: bilateral Qualified Code(s): M79.604 - Pain in right leg Condition: Stable Disposition: HOME - Additional Discharge Information Prescriptions: Ibuprofen 600 mg PO Q6H #30 tablet - Follow up/Referral Referrals: Robe Nguyen MD [Primary Care Provider] - - Patient Discharge Instructions Patient Printed Discharge Instructions: DI for Leg Pain Additional Instructions: You were seen for your leg pain today. It is most likely due to dehydration. Please drink extra fluids including Gatorade and Pedialyte You may take Motrin 600 mg every 6 hours as needed for pain. Please keep your appointment with your primary care doctor for next week. Return to the ER for worsening symptoms, lightheadedness, inability to walk or if you have any changes in your symptoms. - Post Discharge Activity
[2019-11-04 09:58] LABS: EPI CELLS 6 /uL (0-25.1); HYALINE CASTS 4 /uL (0-3.1); PH,URINE 5.5 (5.0-8.0); URINE APPEARANCE CLEAR; URINE BACTERIA 5 /uL (0-1359); URINE BILIRUBIN NEGATIVE (NEGATIVE); URINE COLOR YELLOW; URINE GLUCOSE (UA) NEGATIVE (NEGATIVE); URINE KETONE TRACE (NEGATIVE); URINE LEUK ESTERASE NEGATIVE (NEGATIVE); URINE NITRITE NEGATIVE (NEGATIVE); URINE PROTEIN 1+ (NEGATIVE); URINE RBC 18 /uL (0-23.9); URINE WBC 8 /uL (0-25.8)
[2019-11-04 10:22] LABS: ALBUMIN 4.3 g/dl (3.4-5.0); BILIRUBIN,TOTAL 1.6 mg/dL (0.2-1); BLOOD UREA NITROGEN 20.4 mg/dL (7-18); CALCIUM 9.4 mg/dL (8.5-10.1); CREATININE 0.9 mg/dL (0.55-1.3); MAGNESIUM 2.3 mg/dL (1.8-2.4); POTASSIUM 3.9 mmol/L (3.5-5.1)
== END 2019-11-04 14:26 | disposition home or self-care (01) ==
LOC: JERFT 08:36
PROC: 3E0337Z Introduction of Electrolytic and Water Balance Substance into Peripheral Vein, Percutaneous Approach (ICD-10-PCS; principal; 2019-11-04)
DX: E86.0 Dehydration (principal); M79.604 Pain in right leg
CPT/HCPCS: 36415; 80053; 81003; 82550; 83735; 85025; 87086; 93970-TC; 99284-25

== ENCOUNTER → 2021-09-02 | Day surgery (SDC) | payer OTHER | END | disposition home or self-care (01) | LOC: JRADIR 09:20 | PROVIDERS: ATTEND Family Medicine | PROC: 0G9K3ZX Drainage of Thyroid Gland, Percutaneous Approach, Diagnostic (ICD-10-PCS; principal; 2021-09-02) | DX: E04.1 Nontoxic single thyroid nodule (principal) | CPT/HCPCS: 10005; 76942; 88173; 88305-TC ==

== ENCOUNTER 2022-03-12 08:18 | Emergency (ER) | payer OTHER ==
[2022-03-12 08:32] VITALS: BMI 20.9
[2022-03-12] MEDS ORDERED: ACETAMINOPHEN 500 MG TABLET (FP) PO ONE (09:25)
[2022-03-12] MEDS ORDERED: LIDOCAINE 5% TOPICAL PATCH TP ONE (09:38)
[2022-03-12 10:18] LABS: EPI CELLS 10 /uL (0-25.1); HYALINE CASTS 3 /uL (0-3.1); PH,URINE 6.5 (5.0-8.0); URINE APPEARANCE CLEAR; URINE BACTERIA 5 /uL (0-1359); URINE BILIRUBIN NEGATIVE (NEGATIVE); URINE COLOR YELLOW; URINE GLUCOSE (UA) NEGATIVE (NEGATIVE); URINE KETONE TRACE (NEGATIVE); URINE LEUK ESTERASE TRACE (NEGATIVE); URINE NITRITE NEGATIVE (NEGATIVE); URINE PROTEIN 1+ (NEGATIVE); URINE RBC 42 /uL (0-23.9); URINE WBC 11 /uL (0-25.8)
[2022-03-12 11:48] VITALS: BP 144/75; PULSE 108; RESP 16; TEMP 98
[2022-03-12] MEDS ORDERED: ACETAMINOPHEN 325 MG TABLET (FP) ONE (11:52)
[2022-03-12] MEDS ORDERED: LIDOCAINE 5% TOPICAL PATCH ONE (11:53)
[2022-03-12] MEDS ORDERED: LIDOCAINE PATCH REMOVAL MC ONE (22:00)
== END 2022-03-12 12:29 | disposition home or self-care (01) ==
LOC: JER 08:18
DX: N20.0 Calculus of kidney (principal); R31.9 Hematuria, unspecified
CPT/HCPCS: 74176-TC; 81003; 87086; 99284-25

== ENCOUNTER → 2024-11-08 | Day surgery (SDC) | payer MEDICARE, OTHER | END | disposition home or self-care (01) | LOC: JRADIR 09:16 | PROVIDERS: ATTEND Internal Medicine Endocrinology, Diabetes & Metabolism | PROC: 0G9H3ZX Drainage of Right Thyroid Gland Lobe, Percutaneous Approach, Diagnostic (ICD-10-PCS; principal; 2024-11-08) | DX: E04.1 Nontoxic single thyroid nodule (principal) | CPT/HCPCS: 76942; 88173; 88305-TC ==